=== PATIENT | male | born 1990 | race Caucasian/White ===

== ENCOUNTER 2019-08-19 09:07 | Emergency (ER) | payer MEDICAID ==
[~2019-08-19] VITALS: Ht 185.4 cm; Wt 118.6 kg
[2019-08-19 09:10] VITALS: BP 123/98
--- NOTE | 2019-08-19 09:33 | NUR ---
CXR IN ROOM.
--- NOTE | 2019-08-19 10:17 | NUR ---
Patient given discharge instructions and they have confirmed that they understand the instructions. Patient ambulatory with steady gait.
== END 2019-08-19 10:19 | disposition home or self-care (01) ==
LOC: ED 09:33
DX: B34.9 Viral infection, unspecified (principal)
CPT/HCPCS: 71045; 93005; 99283

== ENCOUNTER 2019-08-30 17:00 | Emergency (ER) | payer MEDICAID ==
[~2019-08-30] VITALS: Ht 185.4 cm; Wt 110.0 kg
[2019-08-30 17:14] VITALS: BP 123/80
--- NOTE | 2019-08-30 17:48 | NUR ---
PT DISCHARGED FROM [facility] IN A STABLE CONDITION. DC INSTRUCTIONS WERE DISCUSSED WITH PT. PT VERBALIZED UNDERSTANDING. NO FURTHER QUESTIONS OR CONCERNS EXPRESSED AT THAT TIME. PT AMBULATED OUT OF RESP TENT WITH A STEADY GAIT.
== END 2019-08-30 17:50 ==
LOC: ED 17:44
DX: B34.9 Viral infection, unspecified (principal); R51 Headache; Z88.0 Allergy status to penicillin
CPT/HCPCS: 99283